=== PATIENT | female | born 1955 | race Caucasian/White ===

== ENCOUNTER 2025-03-07 15:13 | Emergency (ER) | payer OTHER, SELFPAY ==
[2025-03-07 15:31] VITALS: BP 147/92
[2025-03-07 16:29] VITALS: BMI 29.0
--- NOTE | 2025-03-07 16:51 | ED.GENMED ---
History of Present Illness
General
Chief Complaint: Skin Surface Trauma
Source: patient
Exam Limitations: none
Time Seen by Provider: 03/07/25 16:32
Nursing documentation reviewed up to this point in time: agreed with
History of Present Illness
History of Present Illness:
70-year-old female presenting to the emergency department today with concerns of fingertip avulsion to the right index finger while cutting potatoes prior to arrival. Had difficulty controlling bleeding was sent from the urgent care to ER for
ongoing bleeding to the distal tip of the left index finger. Denies additional concerns updated tetanus shot.
Review of Systems
Review of Systems
Allergies reviewed?: Yes
All Other Systems: ROS reviewed and negative except as documented in HPI and ROS
Phy Exam
Physical Exam
Physical Exam:
GENERAL: Alert , in no apparent distress
EYE: pupils equal and reactive
NECK: Supple, no significant adenopathy.
ENT: o/p clr, mmm.
CARDIAC: Regular rate and rhythm .
LUNGS: Clear breath sounds bilaterally, no acute respiratory distress, no wheezes/rales/rhonchi
ABDOMEN: Soft, without focal tenderness, no r/g, no cvat
NEUROLOGICAL: Alert and oriented, no focal neuro deficits
SKIN: Distal fingertip avulsion to the left index finger no nailbed involvement visualized to the base no signs of foreign body no bone involvement warm and dry, skin intact.
MUSCULOSKELETAL: No edema, well perfused.
PSYCH: Normal and appropriate interaction.
Course
Vital Signs
Initial and Last Documented VS:
Initial Vital Signs
Temp Pulse Resp BP Pulse Ox
97.9 F 83 18 147/92 97
03/07/25 15:31 03/07/25 15:31 03/07/25 15:31 03/07/25 15:31 03/07/25 15:31
Last Documented Vital Signs
Temp Pulse Resp BP Pulse Ox
97.9 F 83 18 147/92 97
03/07/25 15:31 03/07/25 15:31 03/07/25 15:31 03/07/25 15:31 03/07/25 16:55
Procedures
Laceration Closure
Left Distal Second Finger:
Status of Wound: clean
Size of Wound in cm: 1
Description of Wound Edges: other (Fingertip avulsion)
Preparation: cleaned with saline
Anesthesia: other (None)
Revision/Debridement: routine- no revision
Wound exploration: explored to base- no FB and no tendon involvement
Type of Closure: Dermabond-skin glue
MDM/Problems Addressed
MDM/Problems Addressed:
70-year-old female presenting to the emergency department today with concerns of a fingertip avulsion to the left index finger from a mandolin prior to arrival. She had trouble controlling the bleeding with urgent care who then sent her to the ER.
Her tetanus shot is up-to-date. Denies additional injuries. No nailbed involvement no bone involvement. This was closed with Dermabond with success no ongoing bleeding stable for discharge.
*Pulse Oximetry
SaO2: 97
Oxygen Mode of Delivery: Room air
Patient hypoxic: no (97)
*Critical Care Note
Total Time (30-74mins, 75-104mins- exclusive of procedures): Not Applicable
ED Attending Note
-
Portions of this chart may have been created with voice recognition software.� Occasional wrong word or��sound alike� substitutions may have occurred due to the inherent limitations of voice recognition software.
Discharge Plan
Departure
Patient Disposition: Home (Routine Discharge)
Date of Disposition: 03/07/25
Time of Disposition: 16:55
Patient with high blood pressure during this ER visit?: No
Condition: Good
Covid-19: Not Applicable
Discharge Problem:
Avulsion of finger tip
Instructions: Laceration Repair With Glue (DC)
Activity Restrictions/Additional Instructions:
You came to the emergency department today with concerns of fingertip avulsion. This was closed with Dermabond to control bleeding. Please keep the area clean covered and follow-up as an outpatient for any ongoing symptoms. Return for any
worsening, new or concerning symptoms.
Interventions
Interventions:
*Risk Screen - Suicide Last Done: 03/07/25 15:31
*General Assessment Last Done: 03/07/25 15:31
*Neglect/Abuse Screening Last Done: 03/07/25 15:31
*ED COVID-19 Vaccine History Last Done: 03/07/25 15:31
*ED Influenza Vaccine History Last Done: 03/07/25 15:31
[facility] Fall Risk Assessment Tool Last Done: 03/07/25 16:29
ED-Skin Assessment Last Done: 03/07/25 16:29
Discharge Date and Time
Print Language: [id number]
== END 2025-03-07 17:12 | disposition home or self-care (01) ==
LOC: EMR 15:13
PROVIDERS: EMERGENCY PHYSICIAN Emergency Medicine
DX: S61.210A Laceration without foreign body of right index finger without damage to nail, initial encounter (principal); W26.0XXA Contact with knife, initial encounter
CPT/HCPCS: 99282; 12001